=== PATIENT | female | born 1950 | race American Indian/Alaskan Native ===

== ENCOUNTER 2017-11-04 20:36 | Emergency (ER) | payer MEDICARE ==
[2017-11-04 21:17] VITALS: BP 151/85
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
== END 2017-11-05 02:30 | disposition home or self-care (01) ==
LOC: ED 20:36
DX: Z77.098 Contact with and (suspected) exposure to other hazardous, chiefly nonmedicinal, chemicals (principal); R51 Headache; R42 Dizziness and giddiness; I10 Essential (primary) hypertension
CPT/HCPCS: 99282

== ENCOUNTER 2018-05-22 21:21 | Emergency (ER) | payer MEDICARE ==
[2018-05-22] MEDS ORDERED: ASPIRIN PO ONE (21:59)
[2018-05-22] MEDS ORDERED: ZOFRAN ODT PO ONE (22:39)
[2018-05-22] MEDS ORDERED: NORCO 10/325 PO ONE (22:39)
[2018-05-22 22:49] LABS: Eosinophils # (Auto) 0.3 K/mm3 (0.0-0.4); Eosinophils % (Auto) 5.5 % (0.0-4.3); Hemoglobin 12.3 gm/dl (10.1-14.3); Lymphocytes # (Auto) 1.6 K/mm3 (1.2-5.4); Lymphocytes % (Auto) 32.8 % (13.4-35.0); Mean Corpuscular HGB Conc 32 % (30-34); Mean Corpuscular Volume 82 fl (79-97); Monocytes # (Auto) 0.6 K/mm3 (0.0-0.8); Monocytes % (Auto) 12.3 % (0.0-7.3); Platelet Count 310 K/mm3 (140-440); Red Blood Count 4.64 M/mm3 (3.65-5.03); Red Cell Distribution Width 13.4 % (13.2-15.2)
[2018-05-22 23:01] LABS: BUN/Creatinine Ratio 30; Blood Urea Nitrogen 21 mg/dL (7-17); Calcium 9.3 mg/dL (8.4-10.2); Hemolysis Index 15
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
[2018-05-24 12:57] VITALS: BP 123/74
== END 2018-05-22 23:56 | disposition home or self-care (01) ==
LOC: ED 21:21
DX: S16.1XXA Strain of muscle, fascia and tendon at neck level, initial encounter (principal); R07.89 Other chest pain; I10 Essential (primary) hypertension; E11.9 Type 2 diabetes mellitus without complications; E78.00 Pure hypercholesterolemia, unspecified; V89.2XXA Person injured in unspecified motor-vehicle accident, traffic, initial encounter; Y93.89 Activity, other specified; Y92.488 Other paved roadways as the place of occurrence of the external cause; Y99.8 Other external cause status
CPT/HCPCS: 36415; 71250; 80048; 85025; 93005; 93010; Q0162

== ENCOUNTER 2018-12-15 09:25 | Emergency (ER) | payer MEDICARE ==
[2018-12-15] MEDS ORDERED: SOLU-Medrol IM ONE (11:15)
[2018-12-15] MEDS ORDERED: BENADRYL IV ONE (11:15)
[2018-12-15] MEDS ORDERED: SOLU-Medrol IV ONE (11:16)
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
[2018-12-15 13:24] VITALS: BP 134/88
== END 2018-12-15 12:30 | disposition home or self-care (01) ==
LOC: ED 09:25
DX: T78.3XXA Angioneurotic edema, initial encounter (principal); Z79.899 Other long term (current) drug therapy; I10 Essential (primary) hypertension; E78.00 Pure hypercholesterolemia, unspecified; E11.9 Type 2 diabetes mellitus without complications; Z87.891 Personal history of nicotine dependence
CPT/HCPCS: 96374; 96375